=== PATIENT | female | born 1995 | race Caucasian/White ===

== ENCOUNTER → 2016-10-14 | Outpatient (CLI) | payer BC ==
[~2016-10-14] MED LIST: BCPILLS PO; MULT-723 PO
[2016-10-14 09:50] LABS: BASO % 0.5 %; BASO ABS # 0.04 K/uL (0-0.2); COMPLETE YES; EOS % 2.2 %; HEMATOCRIT 42.1 % (37-47); IG% 0.2 %; LYMPH % 34.2 %; MEAN CELL VOLUME 84.7 fL (80-100); MEAN CORPUSCULAR HEMOGLOBIN 27.6 pg (25-34); MEAN CORPUSCULAR HGB CONC 32.5 g/dl (32-36); MEAN PLATELET VOLUME 11.3 fL (7.4-10.4); MONO % 6.1 %; NEUT % 56.8 %; PLATELET COUNT 197 K/uL (130-400); RED BLOOD COUNT 4.97 M/uL (4.2-5.4); WHITE BLOOD COUNT 8.76 K/uL (4.8-10.8)
[2016-10-14 10:03] LABS: ESTIMATED AVERAGE GLUCOSE 94 mg/dl; HA1C FLAG Normal (Normal)
[2016-10-14 10:13] LABS: ALB/GLOB RATIO 1.2 (0.9-2); ALKALINE PHOSPHATASE 82 U/L (45-117); ALT/SGPT 20 U/L (12-78); BLOOD UREA NITROGEN 7 mg/dl (7-18); BUN/CREATININE RATIO 9.6 (10-20); CALCIUM 8.7 mg/dl (8.5-10.1); CARBON DIOXIDE 25 mmol/L (21-32); CHLORIDE 108 mmol/L (98-107); CHOLESTEROL 146 mg/dl (0-200); CHOLESTEROL/HDL RATIO 2.8; CREATININE 0.75 mg/dl (0.60-1.20); GLUCOSE 85 mg/dl (70-99); HDL CHOLESTEROL 53 mg/dl; LDL CHOLESTEROL CALCULATED 78 mg/dl; PHOSPHORUS 3.5 mg/dl (2.5-4.9); SODIUM 142 mmol/L (136-145); TRIGLYCERIDES 73 mg/dl (0-150); URIC ACID 3.1 mg/dl (2.6-7.2); VERY LOW DENSITY LIPOPROT CALC 15 mg/dl
[2016-10-14 10:23] LABS: AST/SGOT 12 U/L (15-37); TOTAL IRON BINDING CAPACITY 356 mcg/dl (250-450)
[2016-10-15 10:36] LABS: C-REACTIVE PROT HIGHSEN 0.9 MG/L
== END | disposition home or self-care (01) ==
LOC: C.LAB 08:03
PROVIDERS: ATTEND Family Medicine
DX: R73.09 Other abnormal glucose (principal); R53.83 Other fatigue

== ENCOUNTER 2016-11-22 13:34 | Emergency (ER) | payer OTHER, BC ==
[~2016-11-22] VITALS: Ht 160 cm; Wt 58.0 kg
[2016-11-22 13:48] VITALS: TEMP 37.3; Ht 160 cm; Wt 58.0 kg
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
[2016-11-22 15:50] VITALS: BP 119/77; PULSE 80; O2SAT 97
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
== END 2016-11-22 16:11 | disposition home or self-care (01) ==
LOC: C.EDB 13:36 → C.EDD 16:11
DX: S06.0X0A Concussion without loss of consciousness, initial encounter (principal); V47.5XXA Car driver injured in collision with fixed or stationary object in traffic accident, initial encounter; Y92.488 Other paved roadways as the place of occurrence of the external cause; E03.9 Hypothyroidism, unspecified; K51.90 Ulcerative colitis, unspecified, without complications; Z79.3 Long term (current) use of hormonal contraceptives

== ENCOUNTER → 2017-02-05 | Outpatient (CLI) | payer BC ==
[~2017-02-05] MED LIST changes: -MULT-723 PO
== END | disposition home or self-care (01) ==
LOC: C.LABSPEC 07:56
PROVIDERS: ATTEND Family Medicine
DX: Z77.21 Contact with and (suspected) exposure to potentially hazardous body fluids (principal)

== ENCOUNTER → 2017-02-07 | Outpatient (CLI) | payer BC ==
[2017-02-07 12:19] LABS: BASO % 0.5 %; BASO ABS # 0.05 K/uL (0-0.2); COMPLETE YES; EOS % 1.3 %; HEMATOCRIT 42.4 % (37-47); IG% 0.3 %; LYMPH % 30.4 %; LYMPH ABS # 3.04 K/uL (1.2-3.4); MEAN CELL VOLUME 85.3 fL (80-100); MEAN CORPUSCULAR HEMOGLOBIN 28.2 pg (25-34); MEAN PLATELET VOLUME 11.4 fL (7.4-10.4); MONO % 3.6 %; NEUT % 63.9 %; PLATELET COUNT 228 K/uL (130-400); RED BLOOD COUNT 4.97 M/uL (4.2-5.4); WHITE BLOOD COUNT 10.01 K/uL (4.8-10.8)
[2017-02-07 12:28] LABS: ALT/SGPT 19 U/L (12-78); BLOOD UREA NITROGEN 9 mg/dl (7-18); BUN/CREATININE RATIO 9.6 (10-20); CARBON DIOXIDE 29 mmol/L (21-32); CHLORIDE 106 mmol/L (98-107); CREATININE 0.93 mg/dl (0.60-1.20); GLUCOSE 57 mg/dl (70-99); POTASSIUM 3.8 mmol/L (3.5-5.1); SODIUM 141 mmol/L (136-145)
[2017-02-07 12:37] LABS: CALCIUM 8.6 mg/dl (8.5-10.1)
[2017-02-07 12:38] LABS: ALB/GLOB RATIO 1.1 (0.9-2); ALKALINE PHOSPHATASE 85 U/L (45-117); AST/SGOT 14 U/L (15-37); THYROID STIMULATING HORMONE 0.431 uIu/ml (0.300-4.500)
[2017-02-11 15:10] LABS: CYTOMEGALOVIRUS IGG AB <0.60 U/ML
== END | disposition home or self-care (01) ==
LOC: C.LAB 10:56
PROVIDERS: ATTEND Family Medicine
DX: R53.83 Other fatigue (principal); R19.7 Diarrhea, unspecified

== ENCOUNTER → 2017-08-05 | Outpatient (CLI) | payer BC | END | disposition home or self-care (01) | LOC: C.LAB 07:58 | PROVIDERS: ATTEND Family Medicine | DX: K51.00 Ulcerative (chronic) pancolitis without complications (principal) ==

== ENCOUNTER → 2017-08-08 | Outpatient (CLI) | payer BC ==
[2017-08-08 15:32] LABS: BASO % 0.6 %; BASO ABS # 0.06 K/uL (0-0.2); COMPLETE YES; EOS % 2.2 %; HEMATOCRIT 43.3 % (37-47); IG% 0.2 %; LYMPH % 38.5 %; MEAN CELL VOLUME 86.6 fL (80-100); MEAN CORPUSCULAR HGB CONC 32.3 g/dl (32-36); MEAN PLATELET VOLUME 11.5 fL (7.4-10.4); NEUT % 51.5 %; PLATELET COUNT 229 K/uL (130-400); WHITE BLOOD COUNT 10.39 K/uL (4.8-10.8)
[2017-08-08 16:00] LABS: ALT/SGPT 19 U/L (12-78); AST/SGOT 10 U/L (15-37); BLOOD UREA NITROGEN 8 mg/dl (7-18); BUN/CREATININE RATIO 9.4 (10-20); CALCIUM 8.5 mg/dl (8.5-10.1); CARBON DIOXIDE 28 mmol/L (21-32); CHLORIDE 104 mmol/L (98-107); CREATININE 0.83 mg/dl (0.60-1.20); GLUCOSE 72 mg/dl (70-99); POTASSIUM 3.5 mmol/L (3.5-5.1); SODIUM 138 mmol/L (136-145)
[2017-08-08 16:03] LABS: ALB/GLOB RATIO 1.2 (0.9-2); ALKALINE PHOSPHATASE 86 U/L (45-117)
== END | disposition home or self-care (01) ==
LOC: C.LAB 14:38
PROVIDERS: ATTEND Family Medicine
DX: K51.00 Ulcerative (chronic) pancolitis without complications (principal)